=== PATIENT | male | born 2005 | race Caucasian/White ===

== ENCOUNTER 2024-08-11 22:54 | Emergency (ER) | payer SELFPAY ==
[2024-08-12] MEDS ORDERED: IBUPROFEN 400 MG TAB ONE (01:06)
[2024-08-12] MEDS ORDERED: LIDOCAINE 2% MPF 5 ML VIAL ONE (01:06)
[2024-08-12] MEDS ORDERED: TDAP (DIPHTH,PERTUSS(ACELL),TET VAC) 0.5 ML VIAL IMVAC ONE (01:07)
--- NOTE | 2024-08-12 01:33 | EDPHYS ---
Physician Documentation [facility] Name: Misael Mcqueen Age: 18 yrs Sex: Male : 2005 Arrival Date: 08/11/2024 Time: 22:54 Bed 5 Private MD: ED Physician Federico March HPI: 08/12 00:00 This 18 yrs old Male presents to ER via Ambulatory with complaints of Knee Injury. cp 00:00 The patient presents with an injury, a laceration, irregular. The complaints affect the cp right knee. Context: resulted from fall while skateboarding. 00:00 Onset: The symptoms/episode began/occurred today. Associated signs and symptoms: The cp patient has no apparent associated signs or symptoms. Historical: - Allergies: 08/11 23:58 No Known Allergies; me1 - Home Meds: 23:58 None [Active]; me1 - PMHx: 23:58 None; me1 - PSHx: 23:58 None; me1 - Immunization history:: Adult Immunizations up to date. - Infectious Disease History:: Denies. - Social history:: Smoking status: Patient denies any tobacco usage or history of. ROS: 08/12 00:05 Skin: Positive for laceration(s), of the right knee, cp 00:05 All other systems are negative, cp Exam: 00:10 Constitutional: The patient appears in no acute distress, alert, awake, comfortable, cp well developed, well nourished, 00:10 Head/Face: Normocephalic, atraumatic. cp 00:10 Neck: ROM/movement: is normal, is supple, without pain, no range of motions limitations, 00:10 Back: pain, is absent, ROM is normal, 00:10 Musculoskeletal/extremity: Extremities: noted in the right patella: laceration, swelling, tenderness, Perfusion: the extremity is normally perfused throughout, Sensation intact. Vital Signs: 08/11 23:56 BP 119 / 59; Pulse 94; Resp 16; Temp 98.5; Pulse Ox 100% ; Weight 63.5 kg; Height 5 ft. me1 7 in. ; Pain 6/10; 08/12 00:35 BP 116 / 63; Pulse 87; Resp 16; Pulse Ox 100% ; dd2 01:09 BP 115 / 64; Pulse 84; Resp 16; Temp 98.3; Pulse Ox 100% ; dd2 08/11 23:56 Body Mass Index 21.93 (63.50 kg, 170.18 cm) me1 12 23:56 Pain Scale: Adult me1 [place] Coma Score: 01:09 Eye Response: spontaneous(4). Motor Response: obeys commands(6). Verbal Response: dd2 oriented(5). Total: 15. Laceration: 01:34 Wound Repair of 3cm ( 1.2in ) subcutaneous laceration to right knee. Irregularly cp shaped.. Distal neuro/vascular/tendon intact. Anesthesia: Local anesthetic administered with 5 mls of 2% lidocaine. Wound prep: Moderate cleansing by me, Wound irrigation by me. Skin closed with 4 4-0 Prolene using interrupted sutures and sterile technique. Dressed with Bacitracin, 4x4's. Patient tolerated well. MDM: 00:00 Differential diagnosis: dislocation, open fracture, contusion, abrasion. cp 00:48 Independent interpretation of the following test(s) in the Emergency Department X-Ray: cp My interpretation is images of right knee negative for fracture. 01:32 Medical Screening Exam initiated cp 01:35 Data reviewed: vital signs, nurses notes, radiologic studies, plain films, and as a cp result, I will discharge patient. Counseling: I had a detailed discussion with the patient and/or guardian regarding the historical points, exam findings, and any diagnostic results supporting the discharge/admit diagnosis, radiology results, to return to the emergency department if symptoms worsen or persist or if there are any questions or concerns that arise at home. Response to treatment: the patient's symptoms have markedly improved after treatment, and as a result, I will discharge patient. 08/11 23:54 Order name: XRAY Knee RIGHT 3 view cp 08/11 23:54 Order name: Dressing - Wound; Complete Time: 01:12 cp 08/11 23:54 Order name: Gloves, Sterile; Complete Time: :12 cp 08/11 23:54 Order name: Setup Suture Tray; Complete Time: 01:12 cp Administered Medications: 01:12 Drug: Ibuprofen PO 800 mg PO once Route: PO; dd2 01:35 Follow up: Response: No adverse reaction dd2 01:12 Drug: Lidocaine Infiltration (2 %) 10 ml 5 ml Infiltration once; to bedside {Note: dd2 ADMINISTERED BY MARKOS VILLEDA.} Volume: 5 ml; Route: Infiltration; Site: wound; 01:27 Follow up: Response: No adverse reaction dd2 01:13 Drug: Boostrix Tdap IM 0.5 ml IM once; as a single dose Route: IM; Site: left deltoid; dd2 01:28 Follow up: Response: No adverse reaction dd2 Disposition: 05:37 Co-signature as Attending Physician, Federico March MD I agree with the assessment sp4 and plan of care. I reviewed the patient's care provided by the Advanced Practice Provider and agree with the diagnosis and treatment plan. Disposition Summary: 08/12/24 01:32 Discharge Ordered Notes: Location: Home cp Problem: new cp Symptoms: have improved cp Condition: Stable cp Diagnosis - Laceration without foreign body of knee - right cp Followup: cp - With: Private Physician - When: 7 - 10 days - Reason: Staple/Suture removal Discharge Instructions: - Discharge Summary Sheet cp - Laceration Care, Adult cp Forms: - Medication Reconciliation Form cp - Antibiotic Education cp - Prescription Opioid Use cp - Patient Portal Instructions cp - Leadership Thank You Letter cp Prescriptions: - Cephalexin 500 mg Oral Capsule - take 1 capsule ORAL route every 8 hours for 10 days; 30 capsule; Refills: 0, cp Product Selection Permitted - Ibuprofen 800 mg Oral Tablet - take 1 tablet ORAL route every 8 hours As needed take with food; 30 tablet; cp Refills: 0, Product Selection Permitted Signatures: Dispatcher [employer] EDAL Stefan Hanson PA PA cp Potepalov, Sergey, MD MD sp4 Peggy Adams RN RN me1 BECKY PARDO RN RN dd2
--- NOTE | 2024-08-12 01:33 | ER ---
Nurse's Notes [facility] Name: Misael Mcqueen Age: 18 yrs Sex: Male : 2005 Arrival Date: 08/11/2024 Time: 22:54 Bed 5 Private MD: Diagnosis: Laceration without foreign body of knee-right Presentation: 08/11 23:56 Chief complaint: Patient states: skateboarding about 9 pm tonight and fell, hitting his me1 right knee on the concrete. c/o pain 01/30. Abrasion noted. Coronavirus screen: Vaccine status: Patient reports receiving the 2nd dose of the covid vaccine. Ebola Screen: No symptoms or risks identified at this time. Initial Sepsis Screen: Does the patient meet any 2 criteria? No. Patient's initial sepsis screen is negative. Does the patient have a suspected source of infection? No. Patient's initial sepsis screen is negative. Risk Assessment: Do you want to hurt yourself or someone else? Patient reports no desire to harm self or others. Onset of symptoms was August 11, 2024 at 21:00. 23:56 Method Of Arrival: Ambulatory ak1 23:56 Acuity: RANDELL 4 me1 Historical: - Allergies: 23:58 No Known Allergies; me1 - Home Meds: 23:58 None [Active]; me1 - PMHx: 23:58 None; me1 - PSHx: 23:58 None; me1 - Immunization history:: Adult Immunizations up to date. - Infectious Disease History:: Denies. - Social history:: Smoking status: Patient denies any tobacco usage or history of. Screenin/21 01:09 [facility] ED Fall Risk Assessment (Adult) History of falling in the last 3 months, dd2 including since admission Yes- single mechanical fall (1 pt) Confusion or Disorientation No (0 pts) Intoxicated or Sedated No (0 pts) Impaired Gait No (0 pts) Mobility Assist Device Used No (0 pt) Altered Elimination No (0 pt) Score/Fall Risk Level 0 - 2 = Low Risk Oriented to surroundings, Maintained a safe environment, Educated pt \T\ family on fall prevention, incl call for assistance when getting out of bed, Assessed \T\ reinforced patient's understanding of fall precautions, Hourly rounding (assess needs \T\ fall precautionary measures) done. Abuse screen: Denies threats or abuse. Nutritional screening: No deficits noted. Tuberculosis screening: No symptoms or risk factors identified. Assessment: 01:09 General: Appears in no apparent distress. Behavior is calm, cooperative, appropriate dd2 for age. Pain: Complains of pain in right knee Pain currently is 4 out of 10 on a pain scale. Neuro: No deficits noted. Cardiovascular: No deficits noted. Respiratory: No deficits noted. GI: No deficits noted. No signs and/or symptoms were reported involving the gastrointestinal system. : No deficits noted. No signs and/or symptoms were reported regarding the genitourinary system. EENT: No deficits noted. No signs and/or symptoms were reported regarding the EENT system. Derm: Wound noted right knee Wound is LACERATION TO RT KNEE Reports pain that is 4 out of 10 on a pain scale. Musculoskeletal: Circulation, motion, and sensation intact. Range of motion: intact in all extremities. Injury Description: Laceration sustained to right knee was sustained 2-4 hours ago. moderate bleeding noted at this time. Vital Signs: 08/11 23:56 BP 119 / 59; Pulse 94; Resp 16; Temp 98.5; Pulse Ox 100% ; Weight 63.5 kg; Height 5 ft. me1 7 in. ; Pain 6/10; 08/12 00:35 BP 116 / 63; Pulse 87; Resp 16; Pulse Ox 100% ; dd2 01:09 BP 115 / 64; Pulse 84; Resp 16; Temp 98.3; Pulse Ox 100% ; dd2 08/11 23:56 Body Mass Index 21.93 (63.50 kg, 170.18 cm) me1 08/11 23:56 Pain Scale: Adult me1 [place] Coma Score: 01:09 Eye Response: spontaneous(4). Motor Response: obeys commands(6). Verbal Response: dd2 oriented(5). Total: 15. ED Course: 08/11 22:57 Patient arrived in ED. gm2 23:06 Stefan Hanson PA is PHCP. cp 23:06 Federico March MD is Attending Physician. cp 23:58 Triage completed. me1 23:58 Arm band placed on Patient placed in an internal wait recliner. me1 08/12 00:26 XRAY Knee RIGHT 3 view In Process Unspecified. EDMS 01:09 Patient has correct armband on for positive identification. Call light in reach. Side dd2 rails up X 1. Provided Education on: MEDICATIONS, PROCEDURE. Client placed on continuous cardiac and pulse oximetry monitoring. NIBP monitoring applied. Door closed. Noise minimized. Pillow given. Verbal reassurance given. 01:09 Patient did not have IV access during this emergency room visit. Patient maintains SpO2 dd2 saturation greater than 95% on room air. 01:12 BECKY PARDO, RN is Primary Nurse. dd2 01:39 Assist provider with laceration repair on right knee that was between 7.6 to 12.5 cm dd2 using sutures. Set up tray. Performed by Stefan BURROWS Dressed with 4X4s, Kerlix, Patient tolerated well. Administered Medications: 01:12 Drug: Ibuprofen PO 800 mg PO once Route: PO; dd2 01:35 Follow up: Response: No adverse reaction dd2 01:12 Drug: Lidocaine Infiltration (2 %) 10 ml 5 ml Infiltration once; to bedside {Note: dd2 ADMINISTERED BY MARKOS VILLEDA.} Volume: 5 ml; Route: Infiltration; Site: wound; 01:27 Follow up: Response: No adverse reaction dd2 01:13 Drug: Boostrix Tdap IM 0.5 ml IM once; as a single dose Route: IM; Site: left deltoid; dd2 01:28 Follow up: Response: No adverse reaction dd2 Medication: 01:09 Vaccine Information Statement (VIS) provided today. Questions and/or concerns dd2 addressed. VIS edition date: March 28, 2021. Outcome: 01:09 Discharged to home ambulatory, dd2 01:09 Condition: stable 01:09 Discharge instructions given to patient, Instructed on discharge instructions, follow up and referral plans. medication usage, Demonstrated understanding of instructions, follow-up care, medications, Prescriptions given X 2, 01:32 Discharge ordered by . bartolo 01:45 Patient left the ED. dd2 Signatures: Dispatcher [employer] EDMI Stefan Hanson PA PA cp Eddleman, Michelle RN RN me1 Yulia Preciado gm2 BECKY PARDO, RN RN dd2
--- NOTE | 2024-08-12 02:19 | RAD REPORT ---
Clinical Indication: Bed Name: DX3; PAIN Comparison: None FINDINGS: The 3 views of the right knee show normal alignment without acute fractures or dislocations. The medi al and lateral tibiofemoral compartments are unremarkable. The patellofemoral compartment is unremarkable. There is no joint effusion. There are no radiopaque foreign bodies in the soft tissues. Mild soft tissue swelling is noted in the anterior infrapatellar region. If there is further concern, recommend follow-up radiographs or MRI for complete assessment. IMPRESSION: 1. No acute fractures or dislocation of the right knee. 2. Mild anterior soft tissue swelling. Electronically signed by: Rai Lopez MD 08/12/2024 12:54 AM [facility] Due to temporary technical issues with the PACS/Databox reporting system, reports are being chalo d by the in-house radiologist without review as a courtesy to ensure prompt reporting the interpreting radiologist is fully responsible for the content of the report. Transcribed Date/Time: 08/12/2024 2:19 AM
[2024-08-12 02:34] VITALS: O2SAT 100
[2024-08-12 02:36] VITALS: BP 115/64; TEMP 98.3
== END 2024-08-12 01:45 | disposition home or self-care (01) ==
LOC: ER 22:54
DX: S81.011A Laceration without foreign body, right knee, initial encounter (principal)
CPT/HCPCS: 96372; 99284; J2003

== ENCOUNTER 2024-08-20 15:59 | Emergency (ER) | payer SELFPAY ==
--- NOTE | 2024-08-20 16:43 | EDPHYS ---
Physician Documentation [facility] Name: Misael Mcqueen Age: 18 yrs Sex: Male : 2005 Arrival Date: 08/20/2024 Time: 15:59 Bed IW1 Private MD: ED Physician Maulik Bernard HPI: 08/20 17:07 This 18 yrs old Male presents to ER via Ambulatory with complaints of Wound Check. sb4 17:07 Patient presents to ED for recheck of: laceration. The affected area is on the right sb4 knee. Previous treatment: The patient was initially treated 8 day(s) ago, the care was rendered at [facility], Treatment type: The patient's original treatment included oral antibiotics, Keflex, sutures, Outpatient prescription(s): The patient was given prescription(s) for Keflex, did not fill, Previous recheck: the patient has not been checked since the original treatment. Progress: The patient reports increased pain, redness, swelling. The patient has not experienced similar symptoms in the past. The patient has not recently seen a physician. Historical: - Allergies: 16:35 No Known Allergies; tm6 - PMHx: 16:35 None; tm6 - PSHx: 16:35 None; tm6 - Immunization history:: Flu vaccine is not up to date. - Infectious Disease History:: Denies. - Social history:: Smoking status: Patient denies any tobacco usage or history of. ROS: 17:07 Constitutional: Negative for fever, chills, and weight loss, sb4 17:07 Skin: Positive for per HPI, Exam: 17:07 Constitutional: This is a well developed, well nourished patient who is awake, alert, sb4 and in no acute distress. Head/Face: Normocephalic, atraumatic. Eyes: Extra-ocular motions intact. Periorbital areas with no swelling, redness, or edema. ENT: Mucous membranes moist. 17:07 Skin: Wound recheck: Suture laceration closure: the wound is healing well, the edges are well approximated, mild erythema, mild swelling, Vital Signs: 16:34 BP 138 / 87; Pulse 110; Resp 17; Temp 98.7(O); Pulse Ox 98% on R/A; MAP 100 mmHg; tm6 Weight 79.38 kg; Height 5 ft. 10 in. ; Pain 6/10; 16:34 Body Mass Index 25.11 (79.38 kg, 177.8 cm) tm6 16:34 Pain Scale: Adult tm6 Procedures: 17:07 Suture/Staple removal: Removed 4 sutures, from right knee, site appears reddened, sb4 dressed with Neosporin, Patient tolerated well. MDM: 16:42 Medical Screening Exam initiated sb4 17:09 Data reviewed: vital signs, nurses notes, and as a result, I will discharge patient. sb4 Counseling: I had a detailed discussion with the patient and/or guardian regarding the historical points, exam findings, and any diagnostic results supporting the discharge/admit diagnosis, to return to the emergency department if symptoms worsen or persist or if there are any questions or concerns that arise at home. ED course: patient was initially prescribed cephalexin when he had his sutures placed, did not fill. states he still has the prescription, instructed him to fill now and take as prescribed. he understands . Administered Medications: No medications were administered Disposition: 19:47 Co-signature as Attending Physician, Maulik Bernard MD I reviewed the patient's care rn provided by the Advanced Practice Provider and agree with the diagnosis and treatment plan. Disposition Summary: 08/20/24 16:43 Discharge Ordered Notes: Please fill and take your cephalexin as previously prescribed. Location: Home sb4 Problem: new sb4 Symptoms: have improved sb4 Condition: Stable sb4 Diagnosis - Encounter for removal of sutures sb4 Followup: sb4 - With: Private Physician - When: As needed - Reason: Recheck today's complaints, Re-evaluation by your physician Discharge Instructions: - Discharge Summary Sheet sb4 - Suture Removal, Care After sb4 Forms: - Antibiotic Education sb4 - Patient Portal Instructions sb4 - Leadership Thank You Letter sb4 Signatures: Maulik Bernard MD MD rn Brown, Sophia, PA-C PA-C sb4 Anuj Hebert RN RN 6
--- NOTE | 2024-08-20 16:43 | ER ---
Nurse's Notes [facility] Name: Misael Mcqueen Age: 18 yrs Sex: Male : 2005 Arrival Date: 08/20/2024 Time: 15:59 Bed IW1 Private MD: Diagnosis: Encounter for removal of sutures Presentation: 08/20 16:36 Chief complaint: Patient states: came in 8 days ago and got stitches after falling off 6 skateboard. Now there are little orange bubbles on site. Coronavirus screen: Client denies travel out of the [place] in the last 14 days. Ebola Screen: Patient negative for fever greater than or equal to 101.5 degrees Fahrenheit, and additional compatible Ebola Virus Disease symptoms Patient denies exposure to infectious person. Patient denies travel to an Ebola-affected area in the 21 days before illness onset. No symptoms or risks identified at this time. Initial Sepsis Screen: Does the patient meet any 2 criteria? No. Patient's initial sepsis screen is negative. Does the patient have a suspected source of infection? No. Patient's initial sepsis screen is negative. Risk Assessment: Do you want to hurt yourself or someone else? Patient reports no desire to harm self or others. Onset of symptoms was August 20, 2024. 16:36 Method Of Arrival: Ambulatory tm6 16:36 Acuity: RANDELL 4 tm6 Triage Assessment: 16:36 General: Appears in no apparent distress. Behavior is calm, cooperative. Pain: tm6 Complains of pain in right knee Pain currently is 5 out of 10 on a pain scale. EENT: No signs and/or symptoms were reported regarding the EENT system. Neuro: Level of Consciousness is awake, alert, obeys commands, Oriented to person, place, time, situation. Cardiovascular: Patient's skin is warm and dry. Respiratory: Airway is patent Respiratory effort is even, unlabored, Respiratory pattern is regular, symmetrical. GI: No signs and/or symptoms were reported involving the gastrointestinal system. Abdomen is flat, non-distended. : No signs and/or symptoms were reported regarding the genitourinary system. Derm: Reports orange bubbles around stitches on right knee. Musculoskeletal: Reports pain in right knee. Historical: - Allergies: 16:35 No Known Allergies; tm6 - PMHx: 16:35 None; tm6 - PSHx: 16:35 None; tm6 - Immunization history:: Flu vaccine is not up to date. - Infectious Disease History:: Denies. - Social history:: Smoking status: Patient denies any tobacco usage or history of. Screenin:56 [facility] ED Fall Risk Assessment (Adult) History of falling in the last 3 months, tm6 including since admission No falls in past 3 months (0 pts) Confusion or Disorientation No (0 pts) Intoxicated or Sedated No (0 pts) Impaired Gait No (0 pts) Mobility Assist Device Used No (0 pt) Altered Elimination No (0 pt) Score/Fall Risk Level 0 - 2 = Low Risk Oriented to surroundings, Maintained a safe environment, Educated pt \T\ family on fall prevention, incl call for assistance when getting out of bed. Abuse screen: Denies threats or abuse. Denies injuries from another. Nutritional screening: No deficits noted. Tuberculosis screening: No symptoms or risk factors identified. Assessment: 16:56 Reassessment: see triage assessment. tm6 Vital Signs: 16:34 BP 138 / 87; Pulse 110; Resp 17; Temp 98.7(O); Pulse Ox 98% on R/A; MAP 100 mmHg; tm6 Weight 79.38 kg; Height 5 ft. 10 in. ; Pain 6/10; 16:34 Body Mass Index 25.11 (79.38 kg, 177.8 cm) tm6 16:34 Pain Scale: Adult tm6 ED Course: 16:01 Patient arrived in ED. im 16:07 Jocelyne Zheng PA-C is [facility]. sb4 16:07 Maulik Bernard MD is Attending Physician. sb4 16:36 Arm band placed on right wrist. tm6 16:37 Triage completed. tm6 16:56 Patient has correct armband on for positive identification. Provided Education on: get tm6 antibiotic previously prescribed. 16:56 No provider procedures requiring assistance completed. Patient did not have IV access tm6 during this emergency room visit. Administered Medications: No medications were administered Medication: 16:56 VIS not applicable for this client. tm6 Outcome: 16:43 Discharge ordered by . sb4 16:56 Discharged to home ambulatory, tm6 16:56 Condition: stable 16:56 Discharge instructions given to patient, Instructed on discharge instructions, follow up and referral plans. medication usage, Demonstrated understanding of instructions, follow-up care, medications, 16:57 Patient left the ED. tm6 Signatures: Jocelyne Zheng PA-C PA-C sb4 Vikki Vega Tawney, RN RN tm6
[2024-08-20 17:09] VITALS: BP 138/87; TEMP 98.7; O2SAT 98
== END 2024-08-20 16:57 | disposition home or self-care (01) ==
LOC: ER 15:59
DX: Z48.02 Encounter for removal of sutures (principal)
CPT/HCPCS: 99282